=== PATIENT | male | born 1985 | race Hispanic/Latino ===

== ENCOUNTER 2019-09-23 20:20 | Emergency (ER) | payer OTHER ==
--- NOTE | 2019-09-23 20:36 | Emergency Department Report ---
Blank Doc - Documentation Documentation: 34-year-old male that presents with chest pain. Stated he has taken an extra TST medication. Denies any SOB. This initial assessment/diagnostic orders/clinical plan/treatment(s) is/are subject to change based on patient's health status, clinical progression and re-assessment by fellow clinical providers in the ED. Further treatment and workup at subsequent clinical providers discretion. Patient/guardians urged not to elope from the ED as their condition may be serious if not clinically assessed and managed. Initial orders include: 1- Patient sent to [facility] for further evaluation and treatment 2- EKG 3- labs
[2019-09-23 21:08] LABS: Basophils # (Auto) 0.1 K/mm3 (0.0-0.1); Basophils % (Auto) 0.7 % (0.0-1.8); Eosinophils # (Auto) 0.2 K/mm3 (0.0-0.4); Eosinophils % (Auto) 2.4 % (0.0-4.3); Hematocrit 43.2 % (35.5-45.6); Hemoglobin 14.7 gm/dl (11.8-15.2); Lymphocytes # (Auto) 2.1 K/mm3 (1.2-5.4); Lymphocytes % (Auto) 21.1 % (13.4-35.0); Mean Corpuscular HGB Conc 34 % (32-34); Mean Corpuscular Volume 94 fl (84-94); Monocytes # (Auto) 0.7 K/mm3 (0.0-0.8); Monocytes % (Auto) 7.3 % (0.0-7.3); Platelet Count 237 K/mm3 (140-440); Red Blood Count 4.59 M/mm3 (3.65-5.03); Red Cell Distribution Width 13.7 % (13.2-15.2)
[2019-09-23 21:30] LABS: BUN/Creatinine Ratio 15; Blood Urea Nitrogen 18 mg/dL (9-20); Calcium 8.9 mg/dL (8.4-10.2); Hemolysis Index 10
--- NOTE | 2019-09-23 22:59 | XRay Report ---
CHEST 2 VIEWS INDICATION / CLINICAL INFORMATION: Chest pain starting this morning. COMPARISON: None available. FINDINGS: SUPPORT DEVICES: None. HEART / MEDIASTINUM: The heart size and pulmonary vasculature are normal. The aorta is normal in rae megan. LUNGS / PLEURA: No significant pulmonary or pleural abnormality. No pneumothorax. ADDITIONAL FINDINGS: No significant additional findings. IMPRESSION:No acute findings. Signer Name: Miles Cantrell MD Signed: 09/23/2019 10:55 PM Workstation Name: [id number]
[2019-09-23 23:05] LABS: INR 0.89 (0.87-1.13)
[2019-09-23 23:06] LABS: Partial Thromboplastin Time 25.4 Sec. (24.2-36.6)
[2019-09-23 23:20] LABS: Alanine Aminotransferase 27 units/L (7-56); Albumin 4.1 g/dL (3.9-5)
[2019-09-23 23:27] LABS: Bilirubin,Direct < 0.2 mg/dL (0-0.2)
--- NOTE | 2019-09-24 00:03 | Emergency Department Report ---
ED Chest Pain HPI - General Chief Complaint: Chest Pain Stated Complaint: CHEST PRESSURE,HEAVY HEARTBEAT Time Seen by Provider: 09/23/19 20:37 Source: patient Mode of arrival: Ambulatory Limitations: No Limitations - History of Present Illness Initial Comments: patient is a 34-year-old male presents emergency room with complaints of substernal chest pain that began this morning. He describes the pain as a heaviness and a pressure. He states that he had mild shortness of breath. He states currently the chest pain and shortness of breath have resolved. Patient states that he did feel nausea and overheated initially but that has resolved as well. He denies any pleuritic chest pain, vomiting, radiation of the pain, leg swelling. Patient states that he is on testosterone therapy which he started in October. He states that over the last 4 weeks he increased the dose of his testosterone himself. He states that he goes to a men[facility] clinic for the testosterone but the extra testosterone he received from a friend. he states that he accidentally gave himself testosterone two days in a row because he forgot he gave it two himself yesterday. he states that after he gave himself the extra dose thats when he began experiencing the chest pain, nausea, and feeling overheated. He denies any past medical history or allergies medications. - Related Data Allergies Allergy/AdvReac Type Severity Reaction Status Date / Time No Known Allergies Allergy Verified 09/23/19 20:38 Heart Score - HEART Score History: Slightly suspicious EKG: Normal Age: < 45 Risk factors: No known risk factors Troponin: < normal limit HEART Score: 0 ED Review of Systems ROS: Stated complaint: CHEST PRESSURE,HEAVY HEARTBEAT Other details as noted in HPI Comment: All other systems reviewed and negative ED Past Medical Hx - Past Medical History Previous Medical History?: No - Surgical History Past Surgical History?: No - Social History Smoking Status: Never Smoker Substance Use Type: Marijuana ED Physical Exam - General Limitations: No Limitations General appearance: alert, in no apparent distress - Head Head exam: Present: atraumatic, normocephalic - Eye Eye exam: Present: normal appearance - ENT ENT exam: Present: mucous membranes moist - Respiratory Respiratory exam: Present: normal lung sounds bilaterally. Absent: respiratory distress, wheezes, rales, rhonchi, stridor, chest wall tenderness, accessory muscle use, decreased breath sounds, prolonged expiratory - Cardiovascular Cardiovascular Exam: Present: regular rate, normal rhythm, normal heart sounds. Absent: systolic murmur, diastolic murmur, rubs, gallop - Neurological Exam Neurological exam: Present: alert, oriented X3 - Psychiatric Psychiatric exam: Present: normal affect, normal mood - Skin Skin exam: Present: warm, dry, intact ED Course Vital Signs 09/23/19 09/24/19 20:26 02:19 Temperature 99.4 F 97.6 F Pulse Rate 83 67 Respiratory 18 18 Rate Blood Pressure 157/84 Blood Pressure 120/73 [Left] O2 Sat by Pulse 100 99 Oximetry JAROD score - Jarod Score Age > 65: (0) No Aspirin use within the Past 7 Days: (0) No 3 or more CAD Risk Factors: (0) No 2 or more Angina events in past 24 hrs: (0) No Known CAD with more than 50% Stenosis: (0) No Elevated Cardiac Markers: (0) No ST Deviation Greater than 0.5mm: (0) No JAROD Score: 0 ED Medical Decision Making - Lab Data Result diagrams: 09/23/19 20:53 09/23/19 20:53 Lab Results 09/23/19 09/23/19 09/23/19 Range/Units 20:53 20:53 22:36 WBC 9.7 (4.5-11.0) K/mm3 RBC 4.59 (3.65-5.03) M/mm3 Hgb 14.7 (11.8-15.2) gm/dl Hct 43.2 (35.5-45.6) % MCV 94 (84-94) fl MCH 32 (28-32) pg MCHC 34 (32-34) % RDW 13.7 (13.2-15.2) % Plt Count 237 (140-440) K/mm3 Lymph % (Auto) 21.1 (13.4-35.0) % [place] % (Auto) 7.3 (0.0-7.3) % Eos % (Auto) 2.4 (0.0-4.3) % Baso % (Auto) 0.7 (0.0-1.8) % Lymph # 2.1 (1.2-5.4) K/mm3 Jerome # 0.7 (0.0-0.8) K/mm3 Eos # 0.2 (0.0-0.4) K/mm3 Baso # 0.1 (0.0-0.1) K/mm3 Seg Neutrophils % 68.5 (40.0-70.0) % Seg Neutrophils # 6.7 (1.8-7.7) K/mm3 PT 12.1 L (12.2-14.9) Sec. INR 0.89 (0.87-1.13) APTT 25.4 (24.2-36.6) Sec. D-Dimer 150.59 (0-234) ng/mlDDU Sodium 138 (137-145) mmol/L Potassium 3.7 (3.6-5.0) mmol/L Chloride 101.4 (98-107) mmol/L Carbon Dioxide 25 (22-30) mmol/L Anion Gap 15 mmol/L BUN 18 (9-20) mg/dL Creatinine 1.2 (0.8-1.5) mg/dL Estimated GFR > 60 ml/min BUN/Creatinine Ratio 15 % Glucose 111 H (75-100) mg/dL Calcium 8.9 (8.4-10.2) mg/dL Total Bilirubin (0.1-1.2) mg/dL Direct Bilirubin (0-0.2) mg/dL Indirect Bilirubin mg/dL AST (5-40) units/L ALT (7-56) units/L Alkaline Phosphatase (35-129) units/L Total Creatine Kinase (55-170) units/L Troponin T (0.00-0.029) ng/mL Total Protein (6.3-8.2) g/dL Albumin (3.9-5) g/dL Albumin/Globulin Ratio % 09/23/19 09/23/19 09/24/19 Range/Units 22:36 23:36 01:30 WBC (4.5-11.0) K/mm3 RBC (3.65-5.03) M/mm3 Hgb (11.8-15.2) gm/dl Hct (35.5-45.6) % MCV (84-94) fl MCH (28-32) pg MCHC (32-34) % RDW (13.2-15.2) % Plt Count (140-440) K/mm3 Lymph % (Auto) (13.4-35.0) % [place] % (Auto) (0.0-7.3) % Eos % (Auto) (0.0-4.3) % Baso % (Auto) (0.0-1.8) % Lymph # (1.2-5.4) K/mm3 Jerome # (0.0-0.8) K/mm3 Eos # (0.0-0.4) K/mm3 Baso # (0.0-0.1) K/mm3 Seg Neutrophils % (40.0-70.0) % Seg Neutrophils # (1.8-7.7) K/mm3 PT (12.2-14.9) Sec. INR (0.87-1.13) APTT (24.2-36.6) Sec. D-Dimer (0-234) ng/mlDDU Sodium (137-145) mmol/L Potassium (3.6-5.0) mmol/L Chloride (98-107) mmol/L Carbon Dioxide (22-30) mmol/L Anion Gap mmol/L BUN (9-20) mg/dL Creatinine (0.8-1.5) mg/dL Estimated GFR ml/min BUN/Creatinine Ratio % Glucose (75-100) mg/dL Calcium (8.4-10.2) mg/dL Total Bilirubin < 0.20 (0.1-1.2) mg/dL Direct Bilirubin < 0.2 (0-0.2) mg/dL Indirect Bilirubin 0.0 mg/dL AST 31 (5-40) units/L ALT 27 (7-56) units/L Alkaline Phosphatase 56 (35-129) units/L Total Creatine Kinase 426 H (55-170) units/L Troponin T < 0.010 < 0.010 (0.00-0.029) ng/mL Total Protein 6.4 (6.3-8.2) g/dL Albumin 4.1 (3.9-5) g/dL Albumin/Globulin Ratio 1.8 % - EKG Data EKG shows normal: sinus rhythm, axis, intervals, QRS complexes, ST-T waves Rate: normal - Radiology Data Radiology results: report reviewed CHEST 2 VIEWS INDICATION / CLINICAL INFORMATION: Chest pain starting this morning. COMPARISON: None available. FINDINGS: SUPPORT DEVICES: None. HEART / MEDIASTINUM: The heart size and pulmonary vasculature are normal. The aorta is normal in caliber. LUNGS / PLEURA: No significant pulmonary or pleural abnormality. No pneumothorax. ADDITIONAL FINDINGS: No significant additional findings. IMPRESSION:No acute findings. Signer Name: Miles Cantrell MD Signed: 09/23/2019 10:55 PM Workstation Name: [id number] Transcribed By: RT Dictated By: Miles Cantrell MD Electronically Authenticated By: Miles Cantrell MD Signed Date/Time: 09/23/192254 DD/ 53 TD/TT: - Medical Decision Making patient is a 34-year-old male presents emergency room with complaints of substernal chest pain that began this morning. He describes the pain as a heaviness and a pressure. He states that he had mild shortness of breath. He states currently the chest pain and shortness of breath have resolved. Patient states that he did feel nausea and overheated initially but that has resolved as well. He denies any pleuritic chest pain, vomiting, radiation of the pain, leg swelling. Patient states that he is on testosterone therapy which he started in October. He states that over the last 4 weeks he increased the dose of his testosterone himself. He states that he goes to a men's clinic for the testosterone but the extra testosterone he received from a friend. he states that he accidentally gave himself testosterone two days in a row because he forgot he gave it two himself yesterday. he states that after he gave himself the extra dose thats when he began experiencing the chest pain, nausea, and feeling overheated. He denies any past medical history or allergies medications. VSS. EKG WNL. labs with elevated CK in the 400s, otherwise normal, given 1L of NS. trop negative x2. CXR: No acute findings. d-dimer is negative. only risk factor for PE is the hormone use, pts EKG is normal, no signs of heart strain, pt has no leg swelling, pleurtic CP, no hypoxia, no tachycardia, no clinical signs of PE. JAROD and heart score are 0. Discussed the patient in detail the dangers of his testosterone use and the risks associated with it. Advised patient to please see a primary care physician to discuss whether he should be on testerone supplements at all. Will also have patient follow-up with a funeral arrangement director on outpatient basis. advised pt to please follow-up with a funeral arrangement director and a primary care doctor in the next 2-3 days. Return to the emergency room for any new or worsening symptoms - Differential Diagnosis PE, ACS, testosterone side effects, rhabdo, cardiomyopathy, CHF Critical care attestation.: If time is entered above; I have spent that time in minutes in the direct care of this critically ill patient, excluding procedure time. ED Disposition Clinical Impression: SOB (shortness of breath), Nausea Chest pain Qualifiers: Chest pain type: unspecified Qualified Code(s): R07.9 - Chest pain, unspecified Disposition: TO HOME OR SELFCARE Is pt being admited?: No Does the pt Need Aspirin: No Condition: Stable Instructions: Chest Pain (ED) Additional Instructions: Please follow-up with a funeral arrangement director and a primary care doctor in the next 2-3 days. Return to the emergency room for any new or worsening symptoms. Referrals: BRE ORTIZ MD [Staff Physician] - 2-3 Days CONNOR LEWIS MD [Staff Physician] - 2-3 Days [facility] [Outside] - 2-3 Days [facility] [Outside] - 2-3 Days Forms: Accompanied Note, Work/School Release Form(ED) Time of Disposition: 01:57 Print Language: [place]
[2019-09-24] MEDS ORDERED: SODIUM CHLORIDE 0.9% 1000 ML 1,000 ML IV ONE (00:42)
[2019-09-24 02:20] VITALS: BP 120/73
== END 2019-09-24 02:27 | disposition home or self-care (01) ==
LOC: ED 20:20
DX: R07.2 Precordial pain (principal); R06.02 Shortness of breath; R11.0 Nausea; F12.10 Cannabis abuse, uncomplicated
CPT/HCPCS: 36415; 71046; 80048; 80076; 82550; 84484; 85025; 85379; 85610; 85730; 93005; 93010; 99284; J7030

== ENCOUNTER 2019-09-26 03:59 | Emergency (ER) | payer OTHER ==
[2019-09-26 04:27] VITALS: BP 144/75
== END 2019-09-26 04:30 | disposition left against medical advice (07) ==
LOC: ED 03:59
DX: Z53.21 Procedure and treatment not carried out due to patient leaving prior to being seen by health care provider (principal)

== ENCOUNTER 2019-10-13 03:12 | Emergency (ER) | payer OTHER ==
[2019-10-13 04:15] LABS: Basophils # (Auto) 0.1 K/mm3 (0.0-0.1); Eosinophils # (Auto) 0.4 K/mm3 (0.0-0.4); Eosinophils % (Auto) 6.1 % (0.0-4.3); Hematocrit 49.4 % (35.5-45.6); Hemoglobin 16.4 gm/dl (11.8-15.2); Lymphocytes # (Auto) 1.4 K/mm3 (1.2-5.4); Lymphocytes % (Auto) 24.4 % (13.4-35.0); Mean Corpuscular HGB Conc 33 % (32-34); Mean Corpuscular Volume 95 fl (84-94); Monocytes # (Auto) 0.5 K/mm3 (0.0-0.8); Monocytes % (Auto) 8.2 % (0.0-7.3); Red Blood Count 5.17 M/mm3 (3.65-5.03); Red Cell Distribution Width 14.2 % (13.2-15.2)
[2019-10-13 04:27] LABS: Platelet Count 238 K/mm3 (140-440)
[2019-10-13 04:28] LABS: Alanine Aminotransferase 38 units/L (7-56); Albumin 4.7 g/dL (3.9-5); BUN/Creatinine Ratio 13; Blood Urea Nitrogen 14 mg/dL (9-20); Calcium 9.3 mg/dL (8.4-10.2); Hemolysis Index 5
[2019-10-13 05:41] LABS: Bilirubin,Urine NEG (Negative); Blood,Urine NEG (Negative); Color,Urine Yellow (Yellow); Protein,Urine <15 mg/dL mg/dL (Negative); Urobilinogen,Urine < 2.0 mg/dL (<2.0); WBC,Urine < 1.0 /HPF (0.0-6.0)
--- NOTE | 2019-10-13 09:35 | Emergency Department Report ---
ED General Adult HPI - General Chief complaint: Abdominal Pain Stated complaint: RENAL FAILURE Time Seen by Provider: 10/13/19 09:30 Source: patient Mode of arrival: Ambulatory Limitations: No Limitations - History of Present Illness Initial comments: C/C I WAS SEEN HERE 2 WEEKS AND TOLD I HAD STAGE I KIDNEY FAILURE. Pt states his back, chest and legs ache and he was concerned his kidney function was worse. He did not follow up with MD after discharge Denies chest pain, sob, fever, chills, nausea, vomiting or diarrhea PCP none Pt goes to [facility] for twice per week testosterone PMH low test found when he was told he had MD kidney stones Lab work as ordered in triage noted to be normal and pt d/c home. -: Gradual, week(s) Consistency: constant Improves with: immobilization Worsens with: movement Associated Symptoms: denies other symptoms Treatments Prior to Arrival: none - Related Data Allergies Allergy/AdvReac Type Severity Reaction Status Date / Time No Known Allergies Allergy Verified 09/23/19 20:38 ED Review of Systems ROS: Stated complaint: RENAL FAILURE Other details as noted in HPI Comment: All other systems reviewed and negative ED Past Medical Hx - Past Medical History Previous Medical History?: Yes Hx Renal Disease: Yes - Surgical History Past Surgical History?: No - Family History Family history: other (mother has ckd) - Social History Smoking Status: Current Every Day Smoker Substance Use Type: None ED Physical Exam - General Limitations: No Limitations General appearance: alert, in no apparent distress - Head Head exam: Present: atraumatic, normocephalic - Eye Eye exam: Present: normal appearance - ENT ENT exam: Present: mucous membranes moist - Neck Neck exam: Present: normal inspection - Respiratory Respiratory exam: Present: normal lung sounds bilaterally. Absent: respiratory distress - Cardiovascular Cardiovascular Exam: Present: regular rate, normal rhythm. Absent: systolic murmur, diastolic murmur, rubs, gallop - GI/Abdominal GI/Abdominal exam: Present: soft, normal bowel sounds - Rectal Rectal exam: Present: deferred - Extremities Exam Extremities exam: Present: normal inspection - Back Exam Back exam: Present: normal inspection - Neurological Exam Neurological exam: Present: alert, oriented X3 - Psychiatric Psychiatric exam: Present: normal affect, normal mood - Skin Skin exam: Present: warm, dry, intact, normal color. Absent: rash ED Course Vital Signs 10/13/19 03:16 Temperature 98.3 F Pulse Rate 73 Respiratory 18 Rate Blood Pressure 127/78 O2 Sat by Pulse 97 Oximetry ED Medical Decision Making - Lab Data Result diagrams: 10/13/19 03:25 10/13/19 03:25 - Medical Decision Making Lab Results 10/13/19 10/13/19 10/13/19 Range/Units 03:25 03:25 05:18 WBC 5.9 (4.5-11.0) K/mm3 RBC 5.17 H (3.65-5.03) M/mm3 Hgb 16.4 H (11.8-15.2) gm/dl Hct 49.4 H (35.5-45.6) % MCV 95 H (84-94) fl MCH 32 (28-32) pg MCHC 33 (32-34) % RDW 14.2 (13.2-15.2) % Plt Count 238 (140-440) K/mm3 Lymph % (Auto) 24.4 (13.4-35.0) % [place] % (Auto) 8.2 H (0.0-7.3) % Eos % (Auto) 6.1 H (0.0-4.3) % Baso % (Auto) 1.0 (0.0-1.8) % Lymph # 1.4 (1.2-5.4) K/mm3 [place] # 0.5 (0.0-0.8) K/mm3 Eos # 0.4 (0.0-0.4) K/mm3 Baso # 0.1 (0.0-0.1) K/mm3 Seg Neutrophils % 60.3 (40.0-70.0) % Seg Neutrophils # 3.5 (1.8-7.7) K/mm3 Sodium 138 (137-145) mmol/L Potassium 3.6 (3.6-5.0) mmol/L Chloride 97.8 L (98-107) mmol/L Carbon Dioxide 30 (22-30) mmol/L Anion Gap 14 mmol/L BUN 14 (9-20) mg/dL Creatinine 1.1 (0.8-1.5) mg/dL Estimated GFR > 60 ml/min BUN/Creatinine Ratio 13 % Glucose 110 H (75-100) mg/dL Calcium 9.3 (8.4-10.2) mg/dL Total Bilirubin 0.40 (0.1-1.2) mg/dL AST 62 H (5-40) units/L ALT 38 (7-56) units/L Alkaline Phosphatase 65 (35-129) units/L Total Protein 7.5 (6.3-8.2) g/dL Albumin 4.7 (3.9-5) g/dL Albumin/Globulin Ratio 1.7 % Urine Color Yellow (Yellow) Urine Turbidity Clear (Clear) Urine pH 6.0 (5.0-7.0) Ur Specific [place] 1.008 (1.003-1.030) Urine Protein <15 mg/dl (Negative) mg/dL Urine Glucose (UA) Neg (Negative) mg/dL Urine Ketones Neg (Negative) mg/dL Urine Blood Neg (Negative) Urine Nitrite Neg (Negative) Urine Bilirubin Neg (Negative) Urine Urobilinogen < 2.0 (<2.0) mg/dL Ur Leukocyte Esterase Neg (Negative) Urine WBC (Auto) < 1.0 (0.0-6.0) /HPF Urine RBC (Auto) 1.0 (0.0-6.0) /HPF Vital Signs 10/13/19 03:16 Temperature 98.3 F Pulse Rate 73 Respiratory 18 Rate Blood Pressure 127/78 O2 Sat by Pulse [address] Rowland When pt informed of results he stated, "can I have a work note for 2 days. I am so glad my kidney disease is not worse." Pt dc home with referral to PCP. He verbalizes understanding of dc plan of care. - Differential Diagnosis ro a/c CK Critical care attestation.: If time is entered above; I have spent that time in minutes in the direct care of this critically ill patient, excluding procedure time. ED Disposition Clinical Impression: Musculoskeletal pain Disposition: DC-01 TO HOME OR SELFCARE Is pt being admited?: No Does the pt Need Aspirin: No Condition: Stable Additional Instructions: AVOID WORKING OUT EXCESSIVELY STAY WELL HYDRATED AVOID MOTRIN/ASA/ALEVE ETC YOU HAVE AVOID ALCOHOL, CIG AND ILLICIT DRUGS FOLLOW UP WITH PCP REFERRAL BELOW Referrals: LISANDRA JUAREZ [Other] - 3-5 Days CONNOR LEWIS MD [Staff Physician] - 3-5 Days Time of Disposition: 09:33
[2019-10-13 10:08] VITALS: BP 105/60
== END 2019-10-13 09:50 | disposition home or self-care (01) ==
LOC: ED 03:12
DX: M54.5 Low back pain (principal); R10.30 Lower abdominal pain, unspecified; F17.200 Nicotine dependence, unspecified, uncomplicated
CPT/HCPCS: 36415; 80053; 81001; 85025

== ENCOUNTER 2020-02-08 00:32 | Emergency (ER) | payer BC, OTHER ==
[2020-02-08] MEDS ORDERED: ASPIRIN 325 MG TAB PO ONE (00:44)
--- NOTE | 2020-02-08 01:10 | XRay Report ---
CHEST 1 VIEW INDICATION / CLINICAL INFORMATION: Chest Pain. COMPARISON: None available. FINDINGS: SUPPORT DEVICES: None. HEART / MEDIASTINUM: No significant abnormality. LUNGS / PLEURA: No significant pulmonary or pleural abnormality. No pneumothorax. ADDITIONAL FINDINGS: No significant additional findings. IMPRESSION: 1. No acute findings. Signer Name: Ezekiel Zavala MD Signed: 02/08/2020 1:06 AM Workstation Name: [email or web address]
[2020-02-08 01:51] LABS: BUN/Creatinine Ratio 12; Blood Urea Nitrogen 13 mg/dL (9-20)
[2020-02-08 02:13] LABS: Basophils % (Auto) 0.6 % (0.0-1.8); Eosinophils # (Auto) 0.2 K/mm3 (0.0-0.4); Eosinophils % (Auto) 2.8 % (0.0-4.3); Hematocrit 45.9 % (35.5-45.6); Hemoglobin 15.6 gm/dl (11.8-15.2); Lymphocytes # (Auto) 2.7 K/mm3 (1.2-5.4); Mean Corpuscular HGB Conc 34 % (32-34); Mean Corpuscular Volume 95 fl (84-94); Monocytes # (Auto) 0.4 K/mm3 (0.0-0.8); Monocytes % (Auto) 4.8 % (0.0-7.3); Platelet Count 243 K/mm3 (140-440); Red Blood Count 4.83 M/mm3 (3.65-5.03); Red Cell Distribution Width 13.4 % (13.2-15.2)
--- NOTE | 2020-02-08 02:46 | Emergency Department Report ---
ED Chest Pain HPI - General Chief Complaint: Chest Pain Stated Complaint: JOINT/CHEST PAIN, WATER RETENTION Time Seen by Provider: 02/08/20 02:23 Source: patient Mode of arrival: Ambulatory Limitations: No Limitations - History of Present Illness Initial Comments: 34-year-old male presents to the emergency department with a complaint of a few days of some chest discomfort, shortness of breath, and feeling bloated as if his extremities are "tight." The patient is on testosterone replacement therapy and has been out of his hormones for the past 2 weeks. Specifically the patient says he is out of his anastrozole and therefore he feels like his estrogen levels will be very elevated. He has a clinic that he can go to tomorrow to get a refill of this medication. Otherwise he denies any other past medical history. He is an occasional cigarette smoker but denies any illicit drug use. - Related Data Allergies Allergy/AdvReac Type Severity Reaction Status Date / Time No Known Allergies Allergy Verified 09/23/19 20:38 Heart Score - HEART Score History: Slightly suspicious EKG: Normal Age: < 45 Risk factors: 1-2 risk factors Troponin: < normal limit HEART Score: 1 - Critical Actions Critical Actions: 0-3 pts:0.9-1.7%risk of adverse cardiac event.Candidate for discharge ED Review of Systems ROS: Stated complaint: JOINT/CHEST PAIN, WATER RETENTION Other details as noted in HPI Comment: All other systems reviewed and negative Constitutional: denies: chills, fever Eyes: denies: eye pain, vision change ENT: denies: ear pain, throat pain Respiratory: shortness of breath. denies: cough Cardiovascular: chest pain. denies: palpitations Gastrointestinal: denies: abdominal pain, vomiting Genitourinary: denies: dysuria, discharge Musculoskeletal: myalgia. denies: back pain Skin: denies: rash, lesions Neurological: denies: headache, weakness ED Past Medical Hx - Past Medical History Previous Medical History?: Yes Hx Renal Disease: Yes - Surgical History Past Surgical History?: No - Social History Smoking Status: Never Smoker Substance Use Type: None ED Physical Exam - General Limitations: No Limitations - Other Other exam information: GENERAL: The patient is well-developed well-nourished. HENT: Normocephalic. Atraumatic. Patient has moist mucous membranes. EYES: Extraocular motions are intact. NECK: Supple. Trachea is midline. CHEST/LUNGS: Clear to auscultation. There is no respiratory distress noted. HEART/CARDIOVASCULAR: Regular. There is no tachycardia. There is no murmur. ABDOMEN: Abdomen is soft, nontender. Patient has normal bowel sounds. SKIN: Skin is warm and dry. NEURO: The patient is awake, alert, and oriented. The patient is cooperative. The patient has no focal neurologic deficits. Normal speech. MUSCULOSKELETAL: There is no tenderness or deformity. There is no evidence of acute injury. ED Course Vital Signs 02/08/20 02/08/20 02/08/20 00:36 02:14 02:16 Temperature 97.8 F Pulse Rate 75 60 Respiratory 18 11 L 16 Rate Blood Pressure 138/82 Blood Pressure [Left] O2 Sat by Pulse 98 98 Oximetry 02/08/20 02/08/20 02/08/20 02:30 02:45 03:01 Temperature Pulse Rate 60 58 L Respiratory 12 9 L 21 Rate Blood Pressure Blood Pressure [Left] O2 Sat by Pulse 98 98 97 Oximetry 02/08/20 02/08/20 02/08/20 03:15 03:31 03:45 Temperature Pulse Rate 60 54 L 65 Respiratory 13 11 L 16 Rate Blood Pressure Blood Pressure [Left] O2 Sat by Pulse 98 97 97 Oximetry 02/08/20 02/08/20 04:03 04:12 Temperature Pulse Rate 66 Respiratory 16 Rate Blood Pressure Blood Pressure 124/78 [Left] O2 Sat by Pulse 100 100 Oximetry CHAY score - Chay Score Age > 65: (0) No Aspirin use within the Past 7 Days: (0) No 3 or more CAD Risk Factors: (0) No 2 or more Angina events in past 24 hrs: (0) No Known CAD with more than 50% Stenosis: (0) No Elevated Cardiac Markers: (0) No ST Deviation Greater than 0.5mm: (0) No CHAY Score: 0 ED Medical Decision Making - Lab Data Result diagrams: 02/08/20 01:08 02/08/20 01:08 - EKG Data -: EKG Interpreted by Ut EKG shows normal: sinus rhythm, axis, intervals, QRS complexes (Incomplete right bundle branch block), ST-T waves Rate: normal - EKG Data When compared to previous EKG there are: previous EKG unavailable Interpretation: other (Incomplete right bundle branch block) - Radiology Data Radiology results: image reviewed interpreted by me: Chest x-ray does not show any acute process. There are no pleural effusions, obvious pneumonia and there is no pneumothorax. - Medical Decision Making This patient presents to the emergency department with complaint of a few days of some generalized chest discomfort, shortness of breath, and feeling like he is either retaining some fluid or bloated, but essentially he feels like his extremities are tight. He feels that this is related to the fact that he has not been on his testosterone replacement medication for the past 2 weeks. EKG does not show any signs of ST elevation GA or dysrhythmia. Chest x-ray does not show any pneumonia, pleural effusions, pneumothorax, or any other acute process. His labs have been unremarkable including CBC, metabolic panel, and the patient had a negative troponin and negative d-dimer level. He was seen sleeping and/or resting comfortably multiple times throughout his ED course. Vital signs stable throughout his ED course as well. For all these reasons the patient appears safe for discharge home at this time. He is able to get a refill of his medication later today. His contact information has been sent over to the [facility] for close outpatient follow-up. He will return to the ER with any worsening of his symptoms or any acute distress. Critical Care Time: No Critical care attestation.: If time is entered above; I have spent that time in minutes in the direct care of this critically ill patient, excluding procedure time. ED Disposition Clinical Impression: Atypical chest pain Disposition: DC-01 TO HOME OR SELFCARE Is pt being admited?: No Condition: Stable Instructions: Chest Pain (ED) Additional Instructions: Please follow-up with your physician or clinic for a refill of your medication. I have sent your contact information over to [facility] and someone from their office should be contacting you shortly for close outpatient follow-up regarding your chest pain. Return to the emergency department with any worsening of your symptoms or any acute distress. Referrals: PRIMARY CAREMD [Primary Care Provider] - 3-5 Days CASE DUEÑAS MD [Staff Physician] - 3-5 Days Forms: Work/School Release Form(ED) Time of Disposition: 03:56
[2020-02-08 04:13] VITALS: BP 124/78
== END 2020-02-08 04:19 | disposition home or self-care (01) ==
LOC: ED 00:32
DX: R07.89 Other chest pain (principal); R06.02 Shortness of breath
CPT/HCPCS: 36415; 71045; 80048; 84484; 85025; 85379; 93005